=== PATIENT | male | born 1995 | race Caucasian/White ===

== ENCOUNTER 2018-08-08 04:01 | Emergency (ER) | payer BC, OTHER ==
[2018-08-08 04:26] VITALS: BMI 21.5
--- NOTE | 2018-08-08 04:59 | C.PDOC ---
History Of Present Illness 23-year-old male is referred to the ED from the ICU where his father has been inpatient over the past month. ICU nurses noticed patient has been chain smoking, pacing back and forth, and has not been sleeping. Patient was previously evaluated for anxiety in 2013 but is not currently on any medications. Patient sees Dr. Barber in [place] for his depression. Patient has faced multiple losses in the past, including his girlfriend, aunt, uncle, cat and dog. Patient states he feels hopeless, despondent, and has been self- medicating with alcohol. Patient denies suicidal/homicidal ideation at this time. Time Seen by Provider: 08/08/18 04:05 Chief Complaint (Nursing): Psychiatric Evaluation History Per: Patient History/Exam Limitations: no limitations Onset/Duration Of Symptoms: Days Current Symptoms Are (Timing): Still Present Associated Symptoms: denies: Suicidal Thoughts, Suicidal Plan Involuntary Hold By: None Recent travel outside of the [place]: No Additional History Per: Patient Past Medical History Reviewed: Historical Data, Nursing Documentation, Vital Signs Vital Signs: Last Vital Signs Temp 98.4 F 08/08/18 04:29 Pulse 119 H 08/08/18 04:29 Resp 20 08/08/18 04:29 BP 143/97 H 08/08/18 04:29 Pulse Ox 100 08/08/18 04:29 Primary Care Provider: FAMILY PROVIDER,NO - Medical History PMH: Depression Denies: Anxiety, Bipolar Disorder, Diabetes, Hepatitis, HIV, HTN, Personality Disorder, Schizophrenia, Seizures, Sexually Transmitted Disease Surgical History: No Surg Hx - [facility] INDIVID PSYCHOTHERAP NEC (09/23/13) OTHER GROUP THERAPY (09/23/13) PSYCHIAT DRUG THERAP NEC (09/23/13) Family History: States: Unknown Family Hx - Social History Hx Tobacco Use: Yes Hx Alcohol Use: Yes Hx Substance Use: No (DENIES) - Immunization History Hx Tetanus Toxoid Vaccination: No Hx Influenza Vaccination: No Hx Pneumococcal Vaccination: No Review Of Systems Psych: Positive for: Anxiety, Depression. Negative for: Suicidal ideation Physical Exam - Physical Exam Appears: Non-toxic, No Acute Distress Skin: Normal Color, Warm, Dry Head: Atraumatic, Normacephalic Oral Mucosa: Moist Neck: Supple Chest: Symmetrical Respiratory: No Accessory Muscle Use Extremity: Normal ROM Neurological/Psych: Other (flat affect, otherwise coherent ) ED Course And Treatment - Laboratory Results Result Diagrams: 08/08/18 04:53 08/08/18 04:53 Lab Interpretation: Abnormal (tox and etoh neg) O2 Sat by Pulse Oximetry: 100 (on RA) Pulse Ox Interpretation: Normal Progress Note: Bloodwork and urinalysis ordered and reviewed. Xanax PO given. Reevaluation Time: 05:41 Reassessment Condition: Improved Medical Decision Making Medical Decision Making: Eval by Crisis, will f/u w [facility] and/or his Psychiatrist Dr. Barber out of [place] Disposition Doctor Will See Patient In The: Office Counseled Patient/Family Regarding: Studies Performed, Diagnosis - Disposition Disposition: HOME/ ROUTINE Disposition Time: 05:42 Condition: GOOD Forms: [facility] (German) - Clinical Impression Clinical Impression: Anxiety - Scribe Statement The provider has reviewed the documentation as recorded by the Scribe (Andreia Isaac) Provider Attestation: All medical record entries made by the Scribe were at my direction and personally dictated by me. I have reviewed the chart and agree that the record accurately reflects my personal performance of the history, physical exam, medical decision making, and the department course for this patient. I have also personally directed, reviewed, and agree with the discharge instructions and disposition.
[2018-08-08 05:01] LABS: NRBC % 0.1 % (0.0-2.0)
[2018-08-08 05:08] LABS: BASO # 0.1 K/uL (0.0-0.2); BASO % 0.7 % (0.0-2.0); EOS % 0.4 % (0.0-4.0); HEMOGLOBIN 16.7 g/dL (12.0-18.0); LYMPH # 1.7 K/uL (1.0-4.3); LYMPH % 15.9 % (20.0-40.0); MEAN CELL VOLUME 91.7 fL (80.0-94.0); MEAN CORPUSCULAR HEMOGLOBIN 31.5 pg (27.0-31.0); MEAN CORPUSCULAR HGB CONC 34.3 g/dL (33.0-37.0); MONO % 9.4 % (0.0-10.0); NEUT # 7.7 K/uL (1.8-7.0); NEUT % 73.6 % (50.0-75.0); RBC 5.3 Mil/uL (4.40-5.90); RED CELL DISTRIBUTION WIDTH 12.8 % (11.5-14.5); WHITE BLOOD COUNT 10.4 K/uL (4.8-10.8)
[2018-08-08 05:12] LABS: SQUAMOUS EPITHIAL < 1 /hpf (0-5); URINE BILIRUBIN NEGATIVE (NEGATIVE); URINE BLOOD 2+ (NEGATIVE); URINE CLARITY Hazy (Clear); URINE COLOR Yellow (YELLOW); URINE GLUCOSE (UA) NORMAL (Normal); URINE LEUKOCYTE ESTERASE 3+ Leu/uL (Negative); URINE PROTEIN NEGATIVE (NEGATIVE); URINE UROBILINOGEN NORMAL mg/dL (0.2-1.0)
[2018-08-08 05:13] VITALS: O2SAT 100
[2018-08-08 05:22] LABS: ALB/GLOB RATIO 1.2 (1.0-2.1); ALBUMIN 5.2 g/dL (3.5-5.0); ALT/SGPT 302 U/L (21-72); AST/SGOT 130 U/L (17-59); BLOOD UREA NITROGEN 7 mg/dL (9-20); CALCIUM 10.6 mg/dl (8.6-10.4); GFR NON-AFRICAN AMERICAN > 60
[2018-08-08 05:34] LABS: BARBITURATES, UR NEGATIVE (NEGATIVE); BENZODIAZEPINES, UR NEGATIVE (NEGATIVE); OPIATES, UR NEGATIVE (NEGATIVE); PHENCYCLIDINE, UR NEGATIVE (NEGATIVE)
[2018-08-08 06:06] VITALS: BP 130/80; PULSE 99; RESP 22; TEMP 98
== END 2018-08-08 06:00 | disposition home or self-care (01) ==
LOC: C.ER 04:01
DX: F41.9 Anxiety disorder, unspecified (principal); F32.9 Major depressive disorder, single episode, unspecified
CPT/HCPCS: 80053; 81001; 83735; 84100; 85025; 99284; G0480